=== PATIENT | male | born 1950 | race Caucasian/White ===

== ENCOUNTER 2018-06-09 21:40 | Inpatient (IN) | payer MEDICARE, OTHER ==
[~2018-06-09] VITALS: Ht 170.2 cm; Wt 97.5 kg
[~2018-06-09 21:40] MED LIST: ACET1TAB12 PO; AMLO10TA80 PO; ATOR40TA70 PO; HYDR25TA PO; LORA1TAB PO; LOSA100T14 PO; NORT25CA PO; OMEP40CA34 PO
[2018-06-09] MEDS ORDERED: FAMOTIDINE 20MG/2ML VIAL IV STA (23:02)
[2018-06-09] MEDS ORDERED: ONDANSETRON HCL 4MG/2ML INJ IV STA (23:02)
[2018-06-09] MEDS ORDERED: SODIUM CHLORIDE 0.9% 1,000 ML IV ONE (23:02)
[2018-06-09] MEDS ORDERED: MORPHINE SULFATE 4 MG/ML CPJ (NOT FOR IM USE) IV STA (23:02)
[2018-06-09 23:15] LABS: CHLORIDE 96 mEq/L (98-107)
[2018-06-09 23:19] LABS: ETHANOL BLOOD 100 mg/dL; HEMATOCRIT. 53.8 % (42.0-52.0); HEMOGLOBIN. 18.1 g/dL (14.0-18.0); MEAN CORPUSCULAR HEMOGLOBIN 30.4 pg (28.0-32.0); MEAN CORPUSCULAR VOLUME 90.7 fL (80.0-94.0); MEAN PLATELET VOLUME 8.6 fl (7.4-10.4); PLATELET 322 x1000/uL (130-400); RED BLOOD CELL COUNT 5.93 mill/uL (4.7-6.1); RED CELL DISTRIBUTION WIDTH 14.7 % (11.6-14.6)
[2018-06-09 23:40] LABS: PLATELET ESTIMATE NORMAL
[2018-06-10] MEDS ORDERED: IOHEXOL-350 100 ML BOTTLE ONE (02:20)
[2018-06-10 03:35] LABS: INR 1.7; PROTHROMBIN TIME 17.3 sec (9.6-11.0)
[2018-06-10] MEDS ORDERED: ACETAMINOPHEN 325MG TABLET PO PRN (06:45)
[2018-06-10] MEDS ORDERED: DOCUSATE SODIUM 100MG CAPSULE PO PRN (06:45)
[2018-06-10] MEDS ORDERED: GUAIFENESIN 200MG/10ML SUGAR FREE UDC PO PRN (06:45)
[2018-06-10] MEDS ORDERED: ONDANSETRON HCL 4MG/2ML INJ IV PRN (06:45)
[2018-06-10] MEDS ORDERED: NA PHOS,M-B/NA PHOS,DI-BA ENEMA 118ML PR PRN (06:45)
[2018-06-10] MEDS ORDERED: DIPHENHYDRAMINE 50MG/ML VIAL IV PRN (06:45)
[2018-06-10] MEDS ORDERED: LORAZEPAM 2MG/ML CPJ IV PRN (06:45)
[2018-06-10] MEDS ORDERED: LEVOFLOXACIN 500MG PREMIX 100 ML IV SCH ×2 (06:45→10:00)
[2018-06-10] MEDS ORDERED: HYDROMORPHONE HCL/PF 2MG/ML CPJ IV PRN (06:45)
[2018-06-10] MEDS ORDERED: IPRATROPIUM/ALBUTEROL 0.5-3(2.5)MG/3ML NEB INH PRN (06:45)
[2018-06-10] MEDS ORDERED: MAGNESIUM/ALUMINUM HYDROXIDE/SIMETHICONE 30ML UDC PO PRN (06:45)
[2018-06-10 07:07] LABS: CLARITY URINE CLOUDY (CLEAR); COLOR URINE YELLOW (YELLOW); KETONES URINE TRACE (NEGATIVE); LEUKOCYTE ESTERASE URINE NEGATIVE (NEGATIVE); NITRITE URINE NEGATIVE (NEGATIVE); OCCULT BLOOD URINE 3+ (NEGATIVE); PROTEIN URINE 3+ (NEGATIVE); SPECIFIC GRAVITY URINE 1.057 (1.005-1.030); UROBILINOGEN URINE 0.2 E.U./dL (0.2-1.0)
[2018-06-10] MEDS: PANTOPRAZOLE SODIUM 40 MG/VIAL IV SCH ×2 (09:00→12:10)
[2018-06-10] MEDS: CLONIDINE 0.1MG TABLET PO PRN (09:02)
[2018-06-10 09:37] VITALS: BP 169/116
[2018-06-10 09:38] VITALS: BP 169/116
[2018-06-10] MEDS: SODIUM CHLORIDE 0.45% 1,000 ML IV SCH (12:11)
[2018-06-10 14:37] LABS: CREATINE KINASE MB FRACTION 12.6 ng/mL (0.5-3.6)
[2018-06-10] MEDS: SODIUM CHLORIDE 0.9% INJ 3ML FLUSH IVF SCH ×2 (17:25→21:29)
[2018-06-10] MEDS ORDERED: FUROSEMIDE 40MG/4ML VIAL IVP SCH (18:30)
[2018-06-10 20:00] VITALS: BP 156/74
[2018-06-10] MEDS: ATORVASTATIN CALCIUM 20MG TABLET PO SCH (21:27)
[2018-06-10] MEDS: HYDROCODONE/ACETAMINOPHEN 10/325MG TABLET PO PRN (21:31)
[2018-06-10 23:55] LABS: CREATINE KINASE MB FRACTION 10.4 ng/mL (0.5-3.6)
[2018-06-11] VITALS: BP 149/78
[2018-06-11 04:00] VITALS: BP 138/77
[2018-06-11] MEDS: SODIUM CHLORIDE 0.45% 1,000 ML IV SCH (05:50)
[2018-06-11 05:58] LABS: BASOPHILS % 0.7 % (0.0-2.0); HEMATOCRIT. 37.8 % (42.0-52.0); HEMOGLOBIN. 13.2 g/dL (14.0-18.0); LYMPHOCYTES % 16.6 % (20.0-50.0); MEAN CORPUSCULAR HEMOGLOBIN 31.4 pg (28.0-32.0); MEAN CORPUSCULAR VOLUME 90.2 fL (80.0-94.0); MEAN PLATELET VOLUME 8.1 fl (7.4-10.4); MONOCYTES % 9.9 % (2.0-8.0); NEUTROPHILS % 71.8 % (40.0-76.0); PLATELET 206 x1000/uL (130-400); RED CELL DISTRIBUTION WIDTH 14.5 % (11.6-14.6)
[2018-06-11] MEDS: SODIUM CHLORIDE 0.9% INJ 3ML FLUSH IVF SCH ×3 (06:00→22:45)
[2018-06-11 06:09] LABS: CHLORIDE 97 mEq/L (98-107)
[2018-06-11 06:30] LABS: T4 FREE 0.92 ng/dL (0.76-1.46)
[2018-06-11 08:00] VITALS: BP 149/50
[2018-06-11] MEDS: PANTOPRAZOLE SODIUM 40 MG/VIAL IV SCH (09:04)
[2018-06-11] MEDS: LEVOTHYROXINE SODIUM 25MCG TABLET PO SCH (09:04)
[2018-06-11] MEDS: HYDROCODONE/ACETAMINOPHEN 10/325MG TABLET PO PRN (09:06)
[2018-06-11] MEDS: FUROSEMIDE 40MG TABLET PO SCH (09:06)
[2018-06-11 12:00] VITALS: BP 141/76
[2018-06-11] MEDS: LEVOFLOXACIN 250MG PREMIX 50 ML IV SCH (13:35)
[2018-06-11 16:00] VITALS: BP 120/75
[2018-06-11 20:00] VITALS: BP 158/78
[2018-06-11] MEDS: ATORVASTATIN CALCIUM 20MG TABLET PO SCH (20:53)
[2018-06-12] VITALS (8 sets, daily range): BP systolic 118–203; BP diastolic 70–94
[2018-06-12] MEDS: SODIUM CHLORIDE 0.9% INJ 3ML FLUSH IVF SCH ×2 (06:09→20:52)
[2018-06-12] MEDS: LEVOTHYROXINE SODIUM 25MCG TABLET PO SCH (06:09)
[2018-06-12 07:07] LABS: BASOPHILS % 0.6 % (0.0-2.0); EOSINOPHILS % 0.9 % (0.0-5.0); HEMATOCRIT. 39.7 % (42.0-52.0); HEMOGLOBIN. 13.5 g/dL (14.0-18.0); LYMPHOCYTES % 23.2 % (20.0-50.0); MEAN CORPUSCULAR HEMOGLOBIN 31.1 pg (28.0-32.0); MEAN CORPUSCULAR VOLUME 91.8 fL (80.0-94.0); MEAN PLATELET VOLUME 8.3 fl (7.4-10.4); MONOCYTES % 12.7 % (2.0-8.0); NEUTROPHILS % 62.6 % (40.0-76.0); PLATELET 200 x1000/uL (130-400); RED BLOOD CELL COUNT 4.33 mill/uL (4.7-6.1); RED CELL DISTRIBUTION WIDTH 14.8 % (11.6-14.6)
[2018-06-12] MEDS: POTASSIUM CHLORIDE 20MEQ TABLET SR PO SCH (08:51)
[2018-06-12] MEDS: PANTOPRAZOLE SODIUM 40 MG/VIAL IV SCH (08:51)
[2018-06-12] MEDS: FUROSEMIDE 40MG TABLET PO SCH (08:51)
[2018-06-12] MEDS: HYDRALAZINE 20MG/ML VIAL IV PRN ×2 (12:09→20:52)
[2018-06-12] MEDS: LEVOFLOXACIN 250MG PREMIX 50 ML IV SCH (12:09)
[2018-06-12] MEDS ORDERED: AMLODIPINE 10MG TABLET PO NR (14:45)
[2018-06-12] MEDS: CLONIDINE 0.1MG TABLET PO PRN ×2 (16:52→23:58)
[2018-06-12] MEDS: LOSARTAN POTASSIUM 100 MG TABLET PO SCH (17:42)
[2018-06-12] MEDS: ATORVASTATIN CALCIUM 20MG TABLET PO SCH (20:52)
[2018-06-13] VITALS: BP 177/91
[2018-06-13 04:00] VITALS: BP 179/89
[2018-06-13] MEDS: HYDRALAZINE 20MG/ML VIAL IV PRN (04:35)
[2018-06-13] MEDS: SODIUM CHLORIDE 0.9% INJ 3ML FLUSH IVF SCH ×3 (06:09→22:01)
[2018-06-13] MEDS: LEVOTHYROXINE SODIUM 25MCG TABLET PO SCH (06:09)
[2018-06-13 06:15] LABS: HEMATOCRIT. 38.6 % (42.0-52.0); HEMOGLOBIN. 13.3 g/dL (14.0-18.0); MEAN CORPUSCULAR HEMOGLOBIN 31.2 pg (28.0-32.0); MEAN CORPUSCULAR VOLUME 90.7 fL (80.0-94.0); MEAN PLATELET VOLUME 8.2 fl (7.4-10.4); PLATELET 229 x1000/uL (130-400); RED BLOOD CELL COUNT 4.25 mill/uL (4.7-6.1); RED CELL DISTRIBUTION WIDTH 14.4 % (11.6-14.6)
[2018-06-13 06:50] LABS: PHOSPHORUS 2.4 mg/dL (2.5-4.9)
[2018-06-13 08:00] VITALS: BP 154/78
[2018-06-13] MEDS: LOSARTAN POTASSIUM 100 MG TABLET PO SCH (08:51)
[2018-06-13] MEDS: PANTOPRAZOLE SODIUM 40 MG/VIAL IV SCH (08:51)
[2018-06-13] MEDS: POTASSIUM CHLORIDE 20MEQ TABLET SR PO SCH ×2 (08:51→13:07)
[2018-06-13] MEDS: FUROSEMIDE 40MG TABLET PO SCH (08:51)
[2018-06-13] MEDS ORDERED: SODIUM PHOS,M-BASIC-D-BASIC 15 MM in DEXT 5% WATER 245 ML IV NR (10:30)
[2018-06-13] MEDS ORDERED: LEVOFLOXACIN 250MG TABLET PO SCH (11:00)
[2018-06-13 12:00] VITALS: BP 153/92
[2018-06-13] MEDS: CLOPIDOGREL 75MG TABLET PO SCH (12:21)
[2018-06-13] MEDS ORDERED: CLONIDINE 0.2MG TABLET PO PRN (12:45)
[2018-06-13 13:24] LABS: T4 FREE 1.03 ng/dL (0.76-1.46)
[2018-06-13 13:55] LABS: PLATELET ESTIMATE NORMAL
[2018-06-13] MEDS ORDERED: PHYTONADIONE 10MG/ML AMP SUBCUT NR (14:00)
[2018-06-13 19:01] LABS: CREATINE KINASE MB FRACTION 2.4 ng/mL (0.5-3.6)
[2018-06-13 20:00] VITALS: BP 175/87
[2018-06-13] MEDS: ATORVASTATIN CALCIUM 20MG TABLET PO SCH (20:17)
[2018-06-13] MEDS: DOXAZOSIN MESYLATE 2MG TABLET PO SCH (20:17)
[2018-06-14] VITALS (8 sets, daily range): BP systolic 140–179; BP diastolic 75–95
[2018-06-14 01:48] LABS: CREATINE KINASE MB FRACTION 1.9 ng/mL (0.5-3.6)
[2018-06-14] MEDS: LEVOTHYROXINE SODIUM 25MCG TABLET PO SCH (05:46)
[2018-06-14] MEDS: SODIUM CHLORIDE 0.9% INJ 3ML FLUSH IVF SCH ×3 (05:46→21:56)
[2018-06-14 07:00] LABS: HEMATOCRIT. 38.1 % (42.0-52.0); HEMOGLOBIN. 13.1 g/dL (14.0-18.0); MEAN CORPUSCULAR HEMOGLOBIN 31.5 pg (28.0-32.0); MEAN CORPUSCULAR VOLUME 91.4 fL (80.0-94.0); PLATELET 216 x1000/uL (130-400); RED BLOOD CELL COUNT 4.17 mill/uL (4.7-6.1)
[2018-06-14 07:07] LABS: CHLORIDE 109 mEq/L (98-107)
[2018-06-14 07:14] LABS: PHOSPHORUS 3.1 mg/dL (2.5-4.9)
[2018-06-14 07:15] LABS: CREATINE KINASE 124 IU/L (39-308)
[2018-06-14 07:19] LABS: CREATINE KINASE MB FRACTION 1.7 ng/mL (0.5-3.6)
[2018-06-14] MEDS ORDERED: LIDOCAINE HCL 1% 20ML VIAL (Pyxis) INJ ONE (07:24)
[2018-06-14] MEDS ORDERED: IODIXANOL 320MG/ML 100 ML BOTTLE IV ONE (07:24)
[2018-06-14] MEDS ORDERED: HEPARIN 1,000 UNITS PREMIX 0 ML IV ONE (07:24)
[2018-06-14] MEDS: HYDRALAZINE 20MG/ML VIAL IV PRN (08:02)
[2018-06-14] MEDS: LOSARTAN POTASSIUM 100 MG TABLET PO SCH (08:02)
[2018-06-14] MEDS: ASPIRIN 81MG TABLET PO SCH (08:06)
[2018-06-14] MEDS: POTASSIUM CHLORIDE 20MEQ TABLET SR PO SCH ×2 (08:07)
[2018-06-14] MEDS: CLOPIDOGREL 75MG TABLET PO SCH (08:07)
[2018-06-14] MEDS: PANTOPRAZOLE SODIUM 40 MG/VIAL IV SCH (08:08)
[2018-06-14] MEDS ORDERED: REGADENOSON 0.4 MG/5 ML IV ONE ×2 (09:15→10:18)
[2018-06-14 09:32] LABS: INR 0.9; PROTHROMBIN TIME 9.7 sec (9.6-11.0)
[2018-06-14 09:49] LABS: PLATELET ESTIMATE NORMAL
[2018-06-14] MEDS: LEVOFLOXACIN 500MG TABLET PO SCH (14:15)
[2018-06-14] MEDS: HYDRALAZINE HCL 50MG TABLET PO SCH ×2 (14:15→21:56)
[2018-06-14] MEDS: DOXAZOSIN MESYLATE 2MG TABLET PO SCH (20:57)
[2018-06-14] MEDS: ATORVASTATIN CALCIUM 20MG TABLET PO SCH (20:58)
[2018-06-14] MEDS: HYDROCODONE/ACETAMINOPHEN 10/325MG TABLET PO PRN (21:56)
[2018-06-15] VITALS: BP 153/83
[2018-06-15 04:00] VITALS: BP 165/89
[2018-06-15] MEDS: LEVOTHYROXINE SODIUM 25MCG TABLET PO SCH (06:37)
[2018-06-15] MEDS: SODIUM CHLORIDE 0.9% INJ 3ML FLUSH IVF SCH ×2 (06:37→14:35)
[2018-06-15] MEDS: HYDRALAZINE HCL 50MG TABLET PO SCH ×2 (06:37→14:35)
[2018-06-15 06:40] LABS: HEMATOCRIT. 39.1 % (42.0-52.0); HEMOGLOBIN. 13.3 g/dL (14.0-18.0); MEAN CORPUSCULAR VOLUME 91.4 fL (80.0-94.0); PLATELET 243 x1000/uL (130-400); RED BLOOD CELL COUNT 4.28 mill/uL (4.7-6.1); RED CELL DISTRIBUTION WIDTH 14.7 % (11.6-14.6)
[2018-06-15 07:56] LABS: PHOSPHORUS 3.8 mg/dL (2.5-4.9)
[2018-06-15 08:00] VITALS: BP 151/64
[2018-06-15] MEDS: LOSARTAN POTASSIUM 100 MG TABLET PO SCH (08:34)
[2018-06-15] MEDS: CLOPIDOGREL 75MG TABLET PO SCH (08:34)
[2018-06-15] MEDS: ASPIRIN 81MG TABLET PO SCH (08:34)
[2018-06-15 08:52] LABS: PLATELET ESTIMATE NORMAL
[2018-06-15] MEDS ORDERED: FAMOTIDINE 20MG TABLET PO SCH (09:00)
[2018-06-15] MEDS ORDERED: POTASSIUM CHLORIDE 20MEQ TABLET SR PO SCH (09:00)
[2018-06-15] MEDS ORDERED: MAGNESIUM 2 G PREMIX 50 ML IV SCH (10:00)
[2018-06-15] MEDS: LEVOFLOXACIN 500MG TABLET PO SCH (10:42)
[2018-06-15 12:00] VITALS: BP 146/70
== END 2018-06-15 14:55 | disposition home or self-care (01) | DRG 391 ==
LOC: ER 21:40 → 5WST 06-10 02:54 → EDBEDREQ 06-10 02:57 → EDBEDREQTM 06-10 02:57 → ENRESERV 06-10 07:12
PROVIDERS: ADMIT Internal Medicine; ATTEND Internal Medicine
DX: R10.13 Epigastric pain (principal); N17.0 Acute kidney failure with tubular necrosis; E87.2 Acidosis; R18.8 Other ascites; E46 Unspecified protein-calorie malnutrition; E87.1 Hypo-osmolality and hyponatremia; Z68.33 Body mass index [BMI] 33.0-33.9, adult; K40.90 Unilateral inguinal hernia, without obstruction or gangrene, not specified as recurrent; D53.9 Nutritional anemia, unspecified; K76.0 Fatty (change of) liver, not elsewhere classified; K80.20 Calculus of gallbladder without cholecystitis without obstruction; F41.9 Anxiety disorder, unspecified; R80.9 Proteinuria, unspecified; E78.00 Pure hypercholesterolemia, unspecified; E78.5 Hyperlipidemia, unspecified; F10.229 Alcohol dependence with intoxication, unspecified; I12.9 Hypertensive chronic kidney disease with stage 1 through stage 4 chronic kidney disease, or unspecified chronic kidney disease; K74.60 Unspecified cirrhosis of liver; N18.9 Chronic kidney disease, unspecified; Z96.651 Presence of right artificial knee joint; Z88.6 Allergy status to analgesic agent; Z79.899 Other long term (current) drug therapy
CPT/HCPCS: 36415; 71045; 75635; 78452; 78582; 80048; 80061; 80320; 82550; 82553; 82570; 83036; 83605; 83735; 83880; 83930; 84100; 84156; 84439; 84443; 84484; 85379; 86850; 86900; 87015; 87045; 87427; 87449; 93005; 93017; 93306; 93970; 96361; 96374; 96375; 99285; A9500; A9558; C9113; J0360; J1644; J1940; J1956; J2060; J2270; J2405; J2785; J3430; J3475; J3490; J7030; J7060; Q9967; G0480

== ENCOUNTER 2018-11-20 23:56 | Inpatient (IN) | payer MEDICARE ==
[~2018-11-20] VITALS: Ht 170.2 cm; Wt 93.4 kg
[~2018-11-20 23:56] MED LIST changes: -AMLO10TA80 PO; -HYDR25TA PO; -LOSA100T14 PO; +LOSA100T32 PO
[2018-11-21] MEDS ORDERED: LIDOCAINE HCL 1% 20ML VIAL (Pyxis) INJ INFIL ONE (01:45)
[2018-11-21 02:09] LABS: BASOPHILS % 1.8 % (0.0-2.0); EOSINOPHILS % 1.5 % (0.0-5.0); HEMATOCRIT. 33.3 % (42.0-52.0); HEMOGLOBIN. 11.8 g/dL (14.0-18.0); LYMPHOCYTES % 34.9 % (20.0-50.0); MEAN CORPUSCULAR HEMOGLOBIN 32.9 pg (28.0-32.0); MEAN CORPUSCULAR VOLUME 93.2 fL (80.0-94.0); MEAN PLATELET VOLUME 6.9 fl (7.4-10.4); MONOCYTES % 13.6 % (2.0-8.0); NEUTROPHILS % 48.2 % (40.0-76.0); PLATELET 323 x1000/uL (130-400); RED BLOOD CELL COUNT 3.57 mill/uL (4.7-6.1); RED CELL DISTRIBUTION WIDTH 14.9 % (11.6-14.6)
[2018-11-21 02:16] LABS: CHLORIDE 90 mEq/L (98-107)
[2018-11-21] MEDS ORDERED: TETANUS, DIPHTHERIA, PERTUSSIS VAC/PF 0.5ML (>7YR OLD) IM ONE (03:45)
[2018-11-21 08:25] VITALS: BP 166/93
[2018-11-21] MEDS ORDERED: CLON-457 MT (08:58)
[2018-11-21] MEDS ORDERED: DOXA2TAB2 MT (08:58)
[2018-11-21] MEDS ORDERED: HYDR-4135 MT (08:58)
[2018-11-21] MEDS ORDERED: HYDROCODONE/ACETAMINOPHEN 5/325MG TABLET PO PRN (09:00)
[2018-11-21] MEDS: ENOXAPARIN 40MG/0.4ML SYR SUBCUT SCH (11:02)
[2018-11-21] MEDS: CLONIDINE 0.1MG TABLET PO SCH ×3 (11:02→17:43)
[2018-11-21 12:00] VITALS: BP 157/93
[2018-11-21] MEDS ORDERED: CLONIDINE 0.1MG TABLET PO SCH (12:00)
[2018-11-21] MEDS ORDERED: KETOROLAC 30MG/ML VIAL IV PRN (12:00)
[2018-11-21] MEDS ORDERED: ACETAMINOPHEN 325MG TABLET PO PRN (14:00)
[2018-11-21] MEDS ORDERED: ONDANSETRON HCL 4MG/2ML INJ IV PRN (14:00)
[2018-11-21] MEDS ORDERED: LORAZEPAM 0.5MG TABLET PO PRN (14:00)
[2018-11-21] MEDS ORDERED: DIPHENHYDRAMINE 50MG/ML VIAL IV PRN (14:00)
[2018-11-21] MEDS ORDERED: LORAZEPAM 2MG/ML CPJ IV PRN (14:00)
[2018-11-21] MEDS ORDERED: ENOXAPARIN 40MG/0.4ML SYR SUBCUT SCH (14:00)
[2018-11-21] MEDS: LOSARTAN POTASSIUM 50 MG TABLET PO SCH (14:49)
[2018-11-21] MEDS: SODIUM CHLORIDE 0.9% INJ 3ML FLUSH IVF SCH ×2 (14:49→21:25)
[2018-11-21] MEDS ORDERED: MVI, ADULT NO.1 10 ML, FOLIC ACID 1 MG, THIAMINE HCL 100 MG in SODIUM CHLORIDE 0.9% 1,0... IV SCH ×4 (15:30)
[2018-11-21 16:00] VITALS: BP 166/92
[2018-11-21] MEDS: INSULIN LISPRO 100 UNITS/ML SUBCUT SCH ×2 (17:15→21:00)
[2018-11-21] MEDS ORDERED: DEXTROSE 50% WATER 50ML SYRINGE IV PRN ×2 (17:15)
[2018-11-21] MEDS: SODIUM CHLORIDE 1000MG TABLET PO SCH ×2 (17:41→17:43)
[2018-11-21] MEDS: GUAIFENESIN 200MG/10ML SUGAR FREE UDC PO PRN (18:42)
[2018-11-21 20:00] VITALS: BP 135/87
[2018-11-21] MEDS: CHLORDIAZEPOXIDE 25MG CAPSULE PO SCH (21:23)
[2018-11-21] MEDS: METOPROLOL TARTRATE 25MG TABLET PO SCH (21:23)
[2018-11-21] MEDS: BLOOD SUGAR DIAGNOSTIC STRIP TEST SCH (21:25)
[2018-11-21 23:44] LABS: CHLORIDE 99 mEq/L (98-107)
[2018-11-22] VITALS: BP 130/80
[2018-11-22] MEDS: CLONIDINE 0.1MG TABLET PO SCH ×4 (00:41→17:46)
[2018-11-22] MEDS: FUROSEMIDE 40MG TABLET PO SCH ×3 (00:41→21:12)
[2018-11-22] MEDS: GUAIFENESIN 200MG/10ML SUGAR FREE UDC PO PRN ×2 (00:59→07:02)
[2018-11-22] MEDS ORDERED: MAGNESIUM 2 G PREMIX 50 ML IV SCH (03:00)
[2018-11-22 04:00] VITALS: BP 130/70
[2018-11-22] MEDS: BLOOD SUGAR DIAGNOSTIC STRIP TEST SCH ×4 (06:42→20:20)
[2018-11-22 06:46] LABS: BASOPHILS % 1.5 % (0.0-2.0); EOSINOPHILS % 0.9 % (0.0-5.0); HEMATOCRIT. 27.6 % (42.0-52.0); HEMOGLOBIN. 9.9 g/dL (14.0-18.0); LYMPHOCYTES % 16.1 % (20.0-50.0); MEAN CORPUSCULAR HEMOGLOBIN 33.4 pg (28.0-32.0); MEAN CORPUSCULAR VOLUME 93.5 fL (80.0-94.0); MEAN PLATELET VOLUME 7.3 fl (7.4-10.4); MONOCYTES % 14.3 % (2.0-8.0); NEUTROPHILS % 67.2 % (40.0-76.0); PLATELET 287 x1000/uL (130-400); RED BLOOD CELL COUNT 2.95 mill/uL (4.7-6.1); RED CELL DISTRIBUTION WIDTH 14.9 % (11.6-14.6)
[2018-11-22 06:47] LABS: CHLORIDE 98 mEq/L (98-107)
[2018-11-22] MEDS: INSULIN LISPRO 100 UNITS/ML SUBCUT SCH ×4 (06:55→20:42)
[2018-11-22] MEDS: CHLORDIAZEPOXIDE 25MG CAPSULE PO SCH ×3 (06:56→21:12)
[2018-11-22] MEDS: SODIUM CHLORIDE 0.9% INJ 3ML FLUSH IVF SCH ×3 (06:57→21:13)
[2018-11-22 07:09] LABS: PHOSPHORUS 2.7 mg/dL (2.5-4.9)
[2018-11-22 08:00] VITALS: BP 135/75
[2018-11-22] MEDS: POTASSIUM CHLORIDE 20MEQ TABLET SR PO SCH (08:49)
[2018-11-22] MEDS: THIAMINE HCL 100MG TABLET PO SCH (08:50)
[2018-11-22] MEDS: METOPROLOL TARTRATE 25MG TABLET PO SCH ×2 (08:50→21:12)
[2018-11-22] MEDS: LOSARTAN POTASSIUM 50 MG TABLET PO SCH (08:50)
[2018-11-22] MEDS: ENOXAPARIN 40MG/0.4ML SYR SUBCUT SCH (08:51)
[2018-11-22 12:00] VITALS: BP 147/84
[2018-11-22 16:00] VITALS: BP 140/75
[2018-11-22 17:12] LABS: HEPATITIS B SURFACE ANTIGEN NEGATIVE
[2018-11-22 17:21] LABS: CLARITY URINE CLEAR (CLEAR); COLOR URINE YELLOW (YELLOW); KETONES URINE NEGATIVE (NEGATIVE); LEUKOCYTE ESTERASE URINE NEGATIVE (NEGATIVE); NITRITE URINE NEGATIVE (NEGATIVE); OCCULT BLOOD URINE 2+ (NEGATIVE); PH URINE 6.5 (4.5-8.0); PROTEIN URINE 2+ (NEGATIVE); SPECIFIC GRAVITY URINE 1.007 (1.005-1.030); UROBILINOGEN URINE 0.2 E.U./dL (0.2-1.0)
[2018-11-22 17:42] LABS: HEPATITIS A AB IGM NEGATIVE (NEGATIVE)
[2018-11-22 20:00] VITALS: BP 168/82
[2018-11-22] MEDS: ENOXAPARIN 30MG/0.3ML SYR SUBCUT SCH (21:12)
[2018-11-23] VITALS (7 sets, daily range): BP systolic 81–199; BP diastolic 70–94
[2018-11-23] MEDS: CLONIDINE 0.1MG TABLET PO SCH ×4 (00:18→17:04)
[2018-11-23 02:08] LABS: *AMPHETAMINES SCREEN URINE NEGATIVE (NEGATIVE); *BARBITURATES SCREEN URINE NEGATIVE (NEGATIVE); CANNABINOID URINE SCREEN NEGATIVE (NEGATIVE); METHADONE URINE SCREEN NEGATIVE (NEGATIVE); OPIATES URINE SCREEN NEGATIVE (NEGATIVE); PHENCYCLIDINE URINE SCREEN NEGATIVE (NEGATIVE)
[2018-11-23 02:09] LABS: *BENZODIAZEPINES SCREEN URINE PRESUMTIVE POSITIVE (NEGATIVE); *COCAINE SCREEN URINE NEGATIVE (NEGATIVE)
[2018-11-23] MEDS: SODIUM CHLORIDE 0.9% INJ 3ML FLUSH IVF SCH ×3 (05:08→21:09)
[2018-11-23] MEDS: GUAIFENESIN 200MG/10ML SUGAR FREE UDC PO PRN ×2 (05:08→18:06)
[2018-11-23] MEDS: CHLORDIAZEPOXIDE 25MG CAPSULE PO SCH ×3 (05:08→21:09)
[2018-11-23] MEDS: BLOOD SUGAR DIAGNOSTIC STRIP TEST SCH ×4 (06:14→21:09)
[2018-11-23] MEDS: INSULIN LISPRO 100 UNITS/ML SUBCUT SCH ×4 (06:32→21:00)
[2018-11-23] MEDS: METOPROLOL TARTRATE 25MG TABLET PO SCH ×2 (09:00→20:19)
[2018-11-23] MEDS: ENOXAPARIN 30MG/0.3ML SYR SUBCUT SCH ×2 (09:46→20:19)
[2018-11-23] MEDS: FUROSEMIDE 40MG TABLET PO SCH (09:46)
[2018-11-23] MEDS: THIAMINE HCL 100MG TABLET PO SCH (09:46)
[2018-11-23] MEDS: POTASSIUM CHLORIDE 20MEQ TABLET SR PO SCH (09:46)
[2018-11-23] MEDS: LOSARTAN POTASSIUM 50 MG TABLET PO SCH (09:46)
[2018-11-23] MEDS: AMLODIPINE 5MG TABLET PO SCH (20:18)
[2018-11-23] MEDS ORDERED: AMLODIPINE 2.5MG TABLET PO SCH (21:00)
[2018-11-24] VITALS: BP 134/66
[2018-11-24] MEDS: CLONIDINE 0.1MG TABLET PO SCH ×3 (00:42→11:53)
[2018-11-24 04:00] VITALS: BP 159/75
[2018-11-24] MEDS: CHLORDIAZEPOXIDE 25MG CAPSULE PO SCH ×2 (05:57→13:47)
[2018-11-24] MEDS: SODIUM CHLORIDE 0.9% INJ 3ML FLUSH IVF SCH ×2 (05:58→13:47)
[2018-11-24] MEDS: BLOOD SUGAR DIAGNOSTIC STRIP TEST SCH ×2 (05:59→11:57)
[2018-11-24] MEDS: INSULIN LISPRO 100 UNITS/ML SUBCUT SCH ×2 (06:47→11:58)
[2018-11-24 06:51] LABS: CHLORIDE 102 mEq/L (98-107)
[2018-11-24 06:52] LABS: HEMATOCRIT. 30.8 % (42.0-52.0); HEMOGLOBIN. 10.6 g/dL (14.0-18.0); MEAN CORPUSCULAR VOLUME 95.4 fL (80.0-94.0); MEAN PLATELET VOLUME 7.8 fl (7.4-10.4); PLATELET 267 x1000/uL (130-400); RED BLOOD CELL COUNT 3.23 mill/uL (4.7-6.1); RED CELL DISTRIBUTION WIDTH 14.5 % (11.6-14.6)
[2018-11-24 07:17] LABS: PHOSPHORUS 4.9 mg/dL (2.5-4.9)
[2018-11-24 08:00] VITALS: BP 177/86
[2018-11-24] MEDS ORDERED: LOSARTAN POTASSIUM 100 MG TABLET PO SCH (09:00)
[2018-11-24] MEDS: POTASSIUM CHLORIDE 20MEQ TABLET SR PO SCH (09:09)
[2018-11-24] MEDS: METOPROLOL TARTRATE 25MG TABLET PO SCH (09:09)
[2018-11-24] MEDS: ENOXAPARIN 30MG/0.3ML SYR SUBCUT SCH (09:10)
[2018-11-24] MEDS: THIAMINE HCL 100MG TABLET PO SCH (09:10)
[2018-11-24] MEDS: AMLODIPINE 5MG TABLET PO SCH (09:10)
[2018-11-24 11:07] LABS: PLATELET ESTIMATE NORMAL
[2018-11-24 12:00] VITALS: BP 133/77
[2018-11-24] MEDS ORDERED: MAGNESIUM 2 G PREMIX 50 ML IV ONE (12:30)
[2018-11-24 17:56] VITALS: BP 141/79
== END 2018-11-24 18:53 | disposition home or self-care (01) | DRG 74 ==
LOC: ER 23:56 → 5WST 11-21 04:15 → ENRESERV 11-21 07:21
PROVIDERS: ADMIT Internal Medicine; ATTEND Internal Medicine
DX: G90.8 Other disorders of autonomic nervous system (principal); N39.0 Urinary tract infection, site not specified; E44.1 Mild protein-calorie malnutrition; E22.2 Syndrome of inappropriate secretion of antidiuretic hormone; E78.5 Hyperlipidemia, unspecified; E83.42 Hypomagnesemia; F10.129 Alcohol abuse with intoxication, unspecified; I10 Essential (primary) hypertension; I25.2 Old myocardial infarction; M47.812 Spondylosis without myelopathy or radiculopathy, cervical region; Z96.651 Presence of right artificial knee joint; M48.02 Spinal stenosis, cervical region; Z68.33 Body mass index [BMI] 33.0-33.9, adult; E78.00 Pure hypercholesterolemia, unspecified
CPT/HCPCS: 36415; 71045; 80048; 80076; 80305; 81003; 82436; 82962; 83735; 83880; 83930; 83935; 84100; 84133; 84300; 84443; 84484; 86705; 86709; 86803; 87340; 90715; 93005; 93306; 99285; J1650; J3411; J3475; J3490; J7030